=== PATIENT | male | born 2000 | race African-American/Black ===

== ENCOUNTER 2020-10-04 12:23 | Emergency (ER) | payer OTHER ==
[~2020-10-04] VITALS: Ht 188 cm; Wt 91.6 kg
--- NOTE | 2020-10-04 12:35 | NUR ---
BIB PD FOR OTB C/O R ANKLE PAIN S/P FALLING OFF OF HIS SKATEBOARD THIS AM. RATES PAIN 3/10. DENIES NUMBNESS/TINGLING IN THE EXTREMITY.OFFICERS BY THE PATIENT. WILL CONTINUE TO MONITOR THE PATIENT.
--- NOTE | 2020-10-04 13:17 | NUR ---
SPLINT APPLIED ON RIGHT ANKLE. PATIENT A/OX4, AMBULATORY WITH STEADY GAIT. NO DISTRESS NOTED. Patient discharged to PD in stable condition. Written and verbal after care instructions given. Patient verbalizes understanding of instruction.
[2020-10-04 13:18] VITALS: BP 119/84
== END 2020-10-04 13:18 ==
LOC: ER 12:33
DX: S82.54XA Nondisplaced fracture of medial malleolus of right tibia, initial encounter for closed fracture (principal); V00.131A Fall from skateboard, initial encounter; Y93.51 Activity, roller skating (inline) and skateboarding; Y92.89 Other specified places as the place of occurrence of the external cause; Y99.8 Other external cause status
CPT/HCPCS: 73610-TC